=== PATIENT | female | born 1975 | race Caucasian/White ===

== ENCOUNTER 2023-08-31 13:49 | Emergency (ER) | payer MEDICAID ==
[~2023-08-31] VITALS: Ht 157.5 cm; Wt 81.6 kg
[2023-08-31 14:27] VITALS: BP 168/100; PULSE 65; RESP 16; TEMP 97.5; O2SAT 95
[2023-08-31] MEDS ORDERED: MECLIZINE 25 MG TAB PO ONE (14:45)
[2023-08-31] MEDS ORDERED: ONDANSETRON 4 MG ODT PO ONE (14:45)
[2023-08-31] MEDS ORDERED: KETOROLAC 60 MG/2 ML VIAL IM ONE (14:45)
[2023-08-31 15:52] LABS: APPEARANCE,URINE CLEAR (CLEAR); BILIRUBIN,URINE NEGATIVE (NEGATIVE); BLOOD, URINE NEGATIVE (NEGATIVE); COLOR,URINE YELLOW (YELLOW); LEUKOCYTE ESTERASE ,URINE NEGATIVE (NEGATIVE); NITRITE, URINE NEGATIVE (NEGATIVE); PROTEIN,URINE NEGATIVE (NEGATIVE); UGLUCOSE NEGATIVE (NEGATIVE); UROBILINOGEN,URINE 0.2 EU/dL (0.2 - 1)
[2023-08-31] MEDS ORDERED: MECL-303 PO (16:16)
[2023-08-31 16:21] VITALS: BP 166/101; PULSE 83; RESP 19; TEMP 97.5; O2SAT 95
== END 2023-08-31 16:22 | disposition home or self-care (01) ==
LOC: MED 13:49
DX: R51.9 Headache, unspecified (principal); R42 Dizziness and giddiness; R11.0 Nausea; Z79.899 Other long term (current) drug therapy
CPT/HCPCS: 81003; 93005; 96372; 99284; J1885; J8597; Q0162

== ENCOUNTER 2023-11-11 22:56 | Emergency (ER) | payer MEDICAID ==
[~2023-11-11] VITALS: Ht 157.5 cm; Wt 82.6 kg
[~2023-11-11 22:56] MED LIST: MECL-303 PO
[2023-11-11 22:57] VITALS: BP 178/124; PULSE 94; RESP 16; TEMP 97.9; O2SAT 97
[2023-11-11 23:15] VITALS: TEMP 97.9
[2023-11-11] MEDS ORDERED: NACL 0.9% 1,000 ML IV ONE (23:15)
[2023-11-11] MEDS ORDERED: KETOROLAC 30 MG/ML VIAL IVP ONE (23:15)
[2023-11-11] MEDS ORDERED: METOCLOPRAMIDE 10 MG/2 ML INJ VIAL IVP ONE (23:35)
[2023-11-11] MEDS ORDERED: diphenhydrAMINE 50 MG/ML VIAL IVP ONE (23:35)
[2023-11-12 00:30] VITALS: BP 145/57; PULSE 78; RESP 17; O2SAT 100
[2023-11-12] MEDS ORDERED: ONDA8TAB87 PO (00:30)
[2023-11-12] MEDS ORDERED: IBUP-2213 PO (00:30)
== END 2023-11-12 00:42 | disposition home or self-care (01) ==
LOC: MED 22:56
DX: R51.9 Headache, unspecified (principal); R11.2 Nausea with vomiting, unspecified; I10 Essential (primary) hypertension; Z98.890 Other specified postprocedural states; Z79.899 Other long term (current) drug therapy; Z79.1 Long term (current) use of non-steroidal anti-inflammatories (NSAID)
CPT/HCPCS: 81002; 81025; 96361; 96374; 96375; 99284; J1200; J1885; J2765; J7030

== ENCOUNTER 2024-04-08 23:40 | Emergency (ER) | payer MEDICAID, OTHER ==
[~2024-04-08] VITALS: Ht 157.5 cm; Wt 83.9 kg
[~2024-04-08 23:40] MED LIST changes: +IBUP-2213 PO; +ONDA8TAB87 PO
[2024-04-09] VITALS: BP 186/117; PULSE 88; RESP 18; TEMP 98.7; O2SAT 96
[2024-04-09 00:30] LABS: BASOPHILS # (AUTO) 0.1 K/uL (0.00-0.22); BASOPHILS % (AUTO) 0.8 % (0.0-2.0); EOSINOPHILS # (AUTO) 0.2 K/uL (0-0.4); HEMATOCRIT 40.3 % (36-48); HEMOGLOBIN 13.5 g/dL (12.0-16.0); LYMPHOCYTES # (AUTO) 3.2 K/uL (2.5-16.5); LYMPHOCYTES % (AUTO) 35.6 % (20.5-51.1); MEAN CORPUSCULAR HEMOGLOBIN 28 pg (27-31); MEAN CORPUSCULAR HGB CONC 34 g/dL (33-37); MONOCYTES # (AUTO) 0.5 K/uL (0.8-1.0); MONOCYTES % (AUTO) 5.3 % (1.7-9.3); NEUTROPHILS # (AUTO) 5.1 K/uL (1.8-7.7); NEUTROPHILS % (AUTO) 56.3 % (42.2-75.2); PLATELET COUNT (AUTO) 405 K/uL (140-450); RED BLOOD CELL COUNT(AUTO) 4.92 MIL/uL (4.20-5.40); RED CELL DISTRIBUTION WIDTH 13.9 % (11.6-13.7); WHITE BLOOD COUNT (AUTO) 9.1 K/uL (4.8-10.8)
[2024-04-09 00:40] LABS: ANION GAP 12.6 (8-16); CALCIUM 9.3 mg/dL (8.5-10.1); CARBON DIOXIDE 27.7 mmol/L (21-32); POTASSIUM 3.3 mmol/L (3.5-5.1)
[2024-04-09] MEDS ORDERED: ONDANSETRON 4 MG/2 ML VIAL ONE (01:12)
[2024-04-09] MEDS ORDERED: MORPHINE SULFATE 4 MG/ML SYR ONE (01:12)
[2024-04-09] MEDS: MORPHINE SULFATE 4 MG/ML SYR IVP ONE (01:15)
[2024-04-09] MEDS: ONDANSETRON 4 MG/2 ML VIAL IVP ONE (01:15)
[2024-04-09] MEDS: POTASSIUM CHLORIDE 10 MEQ TABER PO ONE (01:36)
[2024-04-09] MEDS ORDERED: HYDR-2853 PO (03:30)
[2024-04-09] MEDS ORDERED: ACET-10509 PO (03:30)
[2024-04-09 03:39] VITALS: BP 118/76; PULSE 80; RESP 18; TEMP 97.3; O2SAT 98
== END 2024-04-09 03:39 | disposition home or self-care (01) ==
LOC: MED 23:40
DX: R51.9 Headache, unspecified (principal); I10 Essential (primary) hypertension; Z76.0 Encounter for issue of repeat prescription; Z88.5 Allergy status to narcotic agent; Z79.899 Other long term (current) drug therapy; Z90.49 Acquired absence of other specified parts of digestive tract
CPT/HCPCS: 36415; 70450; 71045; 80048; 84484; 85025; 93005; 96374; 96375; 99285; J2270; J2405

== ENCOUNTER 2024-05-30 07:00 | Emergency (ER) | payer OTHER ==
[~2024-05-30] VITALS: Ht 157.5 cm; Wt 99.1 kg
[~2024-05-30 07:00] MED LIST changes: +ACET-10509 PO; +HYDR-2853 PO
[2024-05-30 07:21] VITALS: BP 156/104; PULSE 74; RESP 18; TEMP 97.7; O2SAT 98
[2024-05-30 07:53] LABS: BASOPHILS # (AUTO) 0.1 K/uL (0.00-0.22); BASOPHILS % (AUTO) 0.9 % (0.0-2.0); EOSINOPHILS # (AUTO) 0.1 K/uL (0-0.4); EOSINOPHILS % (AUTO) 1.8 % (0.0-4.0); HEMATOCRIT 38.9 % (36-48); HEMOGLOBIN 12.9 g/dL (12.0-16.0); LYMPHOCYTES # (AUTO) 2.9 K/uL (2.5-16.5); MEAN CORPUSCULAR HEMOGLOBIN 28 pg (27-31); MEAN CORPUSCULAR HGB CONC 33 g/dL (33-37); MEAN CORPUSCULAR VOLUME 83.1 fL (80-94); MONOCYTES # (AUTO) 0.4 K/uL (0.8-1.0); MONOCYTES % (AUTO) 5.1 % (1.7-9.3); NEUTROPHILS # (AUTO) 4.3 K/uL (1.8-7.7); NEUTROPHILS % (AUTO) 55.2 % (42.2-75.2); PLATELET COUNT (AUTO) 342 K/uL (140-450); RED BLOOD CELL COUNT(AUTO) 4.68 MIL/uL (4.20-5.40); RED CELL DISTRIBUTION WIDTH 14.1 % (11.6-13.7); WHITE BLOOD COUNT (AUTO) 7.8 K/uL (4.8-10.8)
[2024-05-30] MEDS: lisinopriL 20 MG TAB PO ONE (08:14)
[2024-05-30] MEDS: ONDANSETRON 4 MG ODT PO ONE (08:14)
[2024-05-30] MEDS: KETOROLAC 30 MG/ML VIAL IM ONE (08:19)
[2024-05-30 08:20] LABS: ANION GAP 12.4 (8-16); CALCIUM 9.2 mg/dL (8.5-10.1); CARBON DIOXIDE 26.4 mmol/L (21-32); CREATININE 1.2 mg/dL (0.6-1.3); POTASSIUM 3.8 mmol/L (3.5-5.1)
[2024-05-30 08:26] LABS: ALBUMIN 3.5 g/dL (3.4-5.0); BILIRUBIN,DIRECT 0.1 mg/dL (0.0-0.3); TOTAL BILIRUBIN 0.3 mg/dL (0.0-1.0); TOTAL PROTEIN, SERUM 7.7 g/dL (6.4-8.2)
[2024-05-30 10:51] LABS: APPEARANCE,URINE CLEAR (CLEAR); BILIRUBIN,URINE NEGATIVE (NEGATIVE); BLOOD, URINE NEGATIVE (NEGATIVE); COLOR,URINE YELLOW (YELLOW); LEUKOCYTE ESTERASE ,URINE NEGATIVE (NEGATIVE); NITRITE, URINE NEGATIVE (NEGATIVE); PROTEIN,URINE NEGATIVE (NEGATIVE); UGLUCOSE NEGATIVE (NEGATIVE); UROBILINOGEN,URINE 0.2 EU/dL (0.2 - 1)
[2024-05-30 11:57] VITALS: BP 110/77; PULSE 60; RESP 18; TEMP 97.7; O2SAT 97
== END 2024-05-30 11:57 | disposition home or self-care (01) ==
LOC: MED 07:00
DX: K57.90 Diverticulosis of intestine, part unspecified, without perforation or abscess without bleeding (principal); I10 Essential (primary) hypertension; Z90.49 Acquired absence of other specified parts of digestive tract; Z79.1 Long term (current) use of non-steroidal anti-inflammatories (NSAID); Z79.899 Other long term (current) drug therapy; Z88.5 Allergy status to narcotic agent; Z88.6 Allergy status to analgesic agent
CPT/HCPCS: 36415; 74176; 80048; 80076; 81003; 81025; 83690; 85025; 96372; 99285; J1885; Q0162

== ENCOUNTER 2024-07-12 06:09 | Emergency (ER) | payer OTHER ==
[~2024-07-12] VITALS: Ht 157.5 cm; Wt 97.5 kg
[~2024-07-12 06:09] MED LIST changes: -ACET-10509 PO; +ACET500T99 PO
[2024-07-12 06:13] VITALS: BP 160/115; PULSE 75; RESP 14; TEMP 97.9; O2SAT 99
[2024-07-12 06:18] VITALS: BP 160/115; PULSE 75; TEMP 97.9
[2024-07-12] MEDS: ONDANSETRON 4 MG ODT PO ONE (06:56)
[2024-07-12] MEDS: KETOROLAC 30 MG/ML VIAL IM ONE (07:02)
[2024-07-12 07:09] LABS: APPEARANCE,URINE CLEAR (CLEAR); BILIRUBIN,URINE NEGATIVE (NEGATIVE); BLOOD, URINE 1+ (NEGATIVE); COLOR,URINE YELLOW (YELLOW); LEUKOCYTE ESTERASE ,URINE NEGATIVE (NEGATIVE); NITRITE, URINE NEGATIVE (NEGATIVE); PROTEIN,URINE NEGATIVE (NEGATIVE); UGLUCOSE NEGATIVE (NEGATIVE); UROBILINOGEN,URINE 0.2 EU/dL (0.2 - 1)
[2024-07-12 07:10] LABS: BASOPHILS # (AUTO) 0.1 K/uL (0.00-0.22); BASOPHILS % (AUTO) 1.2 % (0.0-2.0); EOSINOPHILS # (AUTO) 0.2 K/uL (0-0.4); EOSINOPHILS % (AUTO) 2.4 % (0.0-4.0); HEMATOCRIT 37.5 % (36-48); HEMOGLOBIN 12.4 g/dL (12.0-16.0); LYMPHOCYTES # (AUTO) 2.8 K/uL (2.5-16.5); MEAN CORPUSCULAR HEMOGLOBIN 28 pg (27-31); MEAN CORPUSCULAR HGB CONC 33 g/dL (33-37); MEAN CORPUSCULAR VOLUME 83.2 fL (80-94); MONOCYTES # (AUTO) 0.3 K/uL (0.8-1.0); MONOCYTES % (AUTO) 3.8 % (1.7-9.3); NEUTROPHILS # (AUTO) 4.3 K/uL (1.8-7.7); NEUTROPHILS % (AUTO) 55.6 % (42.2-75.2); PLATELET COUNT (AUTO) 350 K/uL (140-450); RED CELL DISTRIBUTION WIDTH 13.8 % (11.6-13.7); WHITE BLOOD COUNT (AUTO) 7.7 K/uL (4.8-10.8)
[2024-07-12 07:12] LABS: ANION GAP 15.4 (8-16); CALCIUM 9.1 mg/dL (8.5-10.1); CARBON DIOXIDE 25.1 mmol/L (21-32); CREATININE 1.1 mg/dL (0.6-1.3); POTASSIUM 3.5 mmol/L (3.5-5.1)
[2024-07-12 07:13] LABS: ALBUMIN 3.5 g/dL (3.4-5.0); BILIRUBIN,DIRECT 0.1 mg/dL (0.0-0.3); TOTAL BILIRUBIN 0.3 mg/dL (0.0-1.0); TOTAL PROTEIN, SERUM 7.5 g/dL (6.4-8.2)
[2024-07-12 07:13] LABS: BACTERIA,URINE 1+ /HPF (None Seen); MUCUS,URINE 1+ /LPF (None Seen); RBC,URINE 11-20 (MOD) /HPF (0-5); WBC,URINE 0-5 /HPF (0-5)
[2024-07-12 07:50] VITALS: RESP 18; O2SAT 99
== END 2024-07-12 07:50 | disposition home or self-care (01) ==
LOC: MED 06:09
DX: R10.9 Unspecified abdominal pain (principal); R30.0 Dysuria; R11.0 Nausea; I10 Essential (primary) hypertension; Z79.899 Other long term (current) drug therapy; Z88.5 Allergy status to narcotic agent
CPT/HCPCS: 36415; 74176; 80048; 80076; 81001; 81025; 83690; 85025; 99284; Q0162; J1885